=== PATIENT | female | born 1950 | race Caucasian/White ===

== ENCOUNTER 2024-12-11 15:08 | Emergency (ER) | payer MEDICARE, BC, SELFPAY ==
[2024-12-11 15:08] VITALS: BMI 25.6
--- NOTE | 2024-12-11 15:26 | EDNOTE_ITS ---
ED Extremity Problem RME/HPI General Chief complaint: Hand/Wrist Problems Stated complaint: INJURY TO LEFT HAND WITH SAW TODAY Time Seen by Provider: 12/11/24 15:14 Arrival date/time: 12/11/24 15:08 RME / HPI RME / HPI Narrative: This section includes all my notes and documentations, including HPI, PE, and ED course.? Jones Meza MD HPI: 74 year old female with history of hypertension presents to the ED for injury to her left hand and left foot after sawing accident that occurred ~ 30 minutes prior to arrival. States she was using an electric saw when she lost control and struck her left hand. Says the saw fell to the floor and struck her left heel. Reports pain to the lacerations from the saw and the left thumb feeling numb. No other injuries or complaints reported. ROS: All negative except as documented in HPI. Physical Exam: General:? Alert and oriented.?? Eyes:? Conjunctivae and lids clear.?? ENT:? No nasal congestion.?? Neck:? Supple.?? Lungs:? No respiratory distress.?? Skin:? Warm and dry.?? Neuro:? Alert and oriented X 3.?? Left Hand: Left thumb tenderness with multiple lacerations. Left Foot: Equivocal tenderness with multiple lacerations. I reviewed all diagnostic test results. My interpretation of the foot x-ray is no acute findings. My interpretation of the hand x-ray is acute comminuted fracture of the distal phalanx thumb proximally. At this point, diagnoses include?left thumb fracture with lacerations and left foot lacerations. Laceration repair procedure note: Each wound (left hand and left foot) was prepped and draped in normal sterile fashion. Local anesthesia achieved with 1% lidocaine. Profuse irrigation performed under the sink with soap and water and with normal saline. Wound of the left hand repaired with 6 simple sutures using 4-0 nylon. Wound of the left foot repaired with 5 simple sutures using 4-0 nylon. Good approximation and hemostasis achieved. Tdap given. Topical ABX and dressings applied. Patient tolerated well with no complications. Other treatment here included left thumb splint?IV fluid and ibuprofen and Unasyn and two Tylenol #3. Significant improvement noted. Provided good wound care instructions and recommended more outpatient care. Based on my best medical judgment, made decision no further evaluation or treatment indicated at this time.? Patient understands and agrees to the discharge instructions customized and printed, see below. Discharge instructions from Dr. Meza:? -- Your left hand laceration was repaired with 6 stitches. -- Your left foot laceration was repaired with 5 stitches. -- Keep the current dressings intact for 24 hours. -- After 24 hours, change the dressing once daily. -- First remove the dressings gently.? If they do not come off easily, run water through them until they come off easily. -- Then gently wash with soap and water. -- After completely drying, apply antibiotic ointment and new dressing. -- Elevate above the hand above the heart level today and tomorrow as much as possible.? Placing the hand on the head is a good method. Elevate the foot above the waist level today and tomorrow as much as possible. -- For your left thumb fracture, wear the splint until cleared by a doctor taking care of you. Tylenol with codeine for severe pain. -- Augmentin to help prevent severe infection. -- See your doctor or return here in 7 days for suture removal.? Total of 11 stitches. -- See a private doctor on 12/14/2024 for recheck and further care, including to make sure there is no serious infection brewing. Ask for help until you are completely better. Including referral to see specialists if needed. -- Seek immediate medical care with fever, spreading redness from a wound, intolerable pain, if he can't move your fingers or toes, your fingers or toes become cold and blue, or with any concerns. Jones Meza MD Related Data Previous Rx's ?Medication ?Instructions ?Recorded acetaminophen 300 mg-codeine 30 mg 2 tab PO TID PRN pain #20 tabs 12/11/24 tablet amoxicillin 875 mg-potassium 1 tab PO BID #5 tabs 12/11/24 clavulanate 125 mg tablet Allergies Allergy/AdvReac Type Severity Reaction Status Date / Time Sulfa (Sulfonamide Allergy Severe Hives Verified 12/11/24 15:10 Antibiotics) Review of Systems Review of Systems Systems Reviewed: All systems reviewed, normal except as documented Past Medical History Past Medical History NEUROLOGIC: Negative Neurological Disorders CARDIAC: Positive Hypertension RESPIRATORY: Negative Respiratory Disorders GASTROINTESTINAL: Negative Gastrointestinal Disorders GENITOURINARY: Negative Genitourinary Disorders MUSCULOSKELETAL: Negative Musculoskeletal Disorders ENT: Negative History of ENT Problems ENDOCRINE: Negative Endocrine Disorders Social History SMOKING STATUS: Never smoker ED Exam Narrative Physical exam: As noted in HPI Course Quality Measures none Orders Category Date Time Status Saline [Insert IV] NOW Care 12/11/24 16:35 Completed Splint / Immobilizer STAT Care 12/11/24 17:44 Completed Wound Care [Wound Care] NOW Care 12/11/24 16:35 Completed XR foot comp LT min 3V Stat Exams 12/11/24 15:40 Completed XR hand LT 2V Stat Exams 12/11/24 15:40 Completed ACETAMINOPHEN w/COD 300-30 [Tylenol w/Cod #3] Med 12/11/24 15:41 Discontinued 2 tab PO X1 ONE Amoxicillin/Pot Clav 875 [Augmentin 875] Med 12/11/24 15:40 Discontinued 1 tab PO X1 ONE Ampicillin/Sulbac Inj [Unasyn Inj] 1.5 gm Med 12/11/24 17:24 Discontinued Sodium Chloride 0.9% (P) [Ns 0.9% (P)] 50 ml IV X1 Ampicillin/Sulbac Inj [Unasyn Inj] 3 gm Med 12/11/24 16:33 Discontinued Sodium Chloride 0.9% (P) [Ns 0.9% (P)] 50 ml IV X1 Bacitracin Oint pkt Med 12/11/24 16:34 Discontinued 1 gm TOP X1 ONE Ibuprofen Tab [Motrin Tab] Med 12/11/24 15:41 Discontinued 400 mg PO X1 ONE Lidocaine 1% 20 ml [Xylocaine 1% 20 ML] Med 12/11/24 16:34 Discontinued 20 ml INFL X1 ONE Lidocaine 1% 20 ml [Xylocaine 1% 20 ML] Med 12/11/24 16:35 Discontinued 20 ml INFL X1 ONE Mupirocin Oint [Bactroban Oint] Med 12/11/24 17:51 Discontinued 2 gm TOP X1 ONE Sodium Chloride 0.9% 1000 ml [Ns] 1,000 ml Med 12/11/24 16:35 Discontinued IV 999 mls/hr Tet,Diphth,Pertuss(Acell)-Tdap [Boostrix Vacc] Med 12/11/24 15:40 Discontinued 0.5 ml IMI .ONCE ONE Vital Signs Vital signs: Vital Signs Temperature 98.2 F 12/11/24 15:40 Pulse Rate 103 H 12/11/24 15:40 Respiratory Rate 20 12/11/24 15:40 Blood Pressure 165/78 H 12/11/24 15:40 Pulse Oximetry (%) 95 12/11/24 15:40 Oxygen Delivery Method Room Air 12/11/24 15:40 Pulse ox is 95% on room air which is adequate. Extremity Problem MDM Narrative MDM Narrative:: Gayathri Casillas am scribing for and in the presence of Dr. Meza. Patient data External records reviewed:: [facility] previous records (Per EMR review, patient has no previous visits for review ) Clinical information provided by:: patient Social determinants that could affect healthcare access:: none Patient has the following chronic illnesses:: Hypertension How is presenting disease/condition affected by chronic disease/condition?: uneffected by Evaluation data The following diagnostics were reviewed and interpreted by me:: radiology exam(s) Lab and/or radiology exams considered but not ordered:: None Interpretation Summary: Left hand lacerations with left thumb fracture and left foot lacerations. Medications / Prescriptions Medications or Prescriptions considered but not ordered:: None Medication administrations:: Medication Administration History Discontinued Medications Acetaminophen/Codeine Phosphate (Acetaminophen W/Cod 300-30 Tablet) 2 tab PO X1 ONE Stop: 12/11/24 15:42 Last Admin: 12/11/24 16:18 Dose: 2 tab Documented By: JOSÉ MIGUEL Amoxicillin/Clavulanate Potassium (Amoxicillin/Pot Clav 875 Tablet) 1 tab PO X1 ONE Stop: 12/11/24 15:41 Last Admin: 12/11/24 16:14 Dose: 1 tab Documented By: JOSÉ MIGUEL Bacitracin (Bacitracin Oint 1 Gm Packet) 1 gm TOP X1 ONE Stop: 12/11/24 16:35 Last Admin: 12/11/24 17:51 Dose: 1 gm Documented By: ADELSO Comments: UNABLE TO SCAN Diphtheria/Tetanus/Acell Pertussis (Diphth,Pertuss(Acell),Tet Vac 0.5 Ml Vial) 0.5 ml IMi .ONCE ONE Stop: 12/11/24 15:41 Last Admin: 12/11/24 16:17 Dose: 0.5 ml Documented By: JOSÉ MIGUEL Ampicillin Sodium/Sulbactam (Sodium 3 gm/ Sodium Chloride) 50 mls @ 100 mls/hr IV X1 ONE Stop: 12/11/24 16:34 Last Admin: 12/11/24 17:24 Dose: Not Given Documented By: ADELSO Non-Admin Reason: Discontinued Sodium Chloride (Ns) 1,000 mls @ 999 mls/hr IV .Q1H1M ONE Stop: 12/11/24 17:35 Last Admin: 12/11/24 17:28 Dose: 999 mls/hr Documented By: ADELSO Ampicillin Sodium/Sulbactam (Sodium 1.5 gm/ Sodium Chloride) 50 mls @ 100 mls/hr IV X1 ONE Stop: 12/11/24 17:25 Last Infusion: 12/11/24 18:30 Dose: Infused Documented By: Admin: 12/11/24 17:51 Dose: 100 mls/hr Documented By: ADELSO Ibuprofen (Ibuprofen Tab 400 Mg Tablet) 400 mg PO X1 ONE Stop: 12/11/24 15:42 Last Admin: 12/11/24 16:18 Dose: 400 mg Documented By: JOSÉ MIGUEL Lidocaine HCl (Lidocaine Hcl 1% 20 Ml Vial) 20 ml INFL X1 ONE Stop: 12/11/24 16:35 Last Admin: 12/11/24 17:26 Dose: 20 ml Documented By: ADELSO Comments: GIVEN TO DR. YADAV FOR ADMINISTRATION Lidocaine HCl (Lidocaine Hcl 1% 20 Ml Vial) 20 ml INFL X1 ONE Stop: 12/11/24 16:36 Last Admin: 12/11/24 17:27 Dose: 20 ml Documented By: ADELSO Comments: GIVEN TO DR. YADAV FOR ADMINISTRATION Mupirocin (Mupirocin Oint 2% 15 Gm Tube) 2 gm TOP X1 ONE Stop: 12/11/24 17:52 Last Admin: 12/11/24 18:16 Dose: 2 gm Documented By: ADELSO Patient given Tylenol with codeine, Tetanus, Unasyn, and Ibuprofen Consultations Consultation(s) initiated? (list below): No Diagnosis Extremity Problem Differential Diagnosis: other (Fracture, laceration, contusion, sprain, strain) Most likely diagnosis given after review of the tests above:: Left hand lacerations with thumb fracture and left foot lacerations Admission Indicated Admission indicated?: not indicated Explain why admission is indicated or not indicated:: Admission criteria not met Admission Request Was there a request for admission?: No Disposition Plan Disposition Plan: Discharge Discharge Attestation Discharge Attestation: The patient and all family members were given an opportunity to ask questions and understood the discharge instructions. Discharge instructions specifically effects, indications for sooner follow up or return to the emergency department, and the expected course of current diagnosis. Patient condition: Stable Discharge Plan Plan Patient Disposition: HOME (Self Care) Prescriptions/Referrals Prescriptions/Med Rec: New acetaminophen-codeine 300-30 mg tablet 2 tab PO TID MDD 6 PRN (Reason: pain) Qty: 20 0RF amoxicillin-pot clavulanate 875-125 mg tablet 1 tab PO BID Qty: 5 0RF Problem List Clinical Impression: Hand fracture, left, Laceration of left hand, Laceration of left foot Patient/Caregiver Discharge Instructions Discharge Activity: activity as tolerated Education Materials: ED Laceration: All Closures, ED Fracture, Thumb Additional Instructions: Discharge instructions from Dr. Meza:? -- Your left hand laceration was repaired with 6 stitches. -- Your left foot laceration was repaired with 5 stitches. -- Keep the current dressings intact for 24 hours. -- After 24 hours, change the dressing once daily. -- First remove the dressings gently.? If they do not come off easily, run water through them until they come off easily. -- Then gently wash with soap and water. -- After completely drying, apply antibiotic ointment and new dressing. -- Elevate above the hand above the heart level today and tomorrow as much as possible.? Placing the hand on the head is a good method. Elevate the foot above the waist level today and tomorrow as much as possible. -- For your left thumb fracture, wear the splint until cleared by a doctor taking care of you. Tylenol with codeine for severe pain. -- Augmentin to help prevent severe infection. -- See your doctor or return here in 7 days for suture removal.? Total of 11 stitches. -- See a private doctor on 12/14/2024 for recheck and further care, including to make sure there is no serious infection brewing. Ask for help until you are completely better. Including referral to see specialists if needed. -- Seek immediate medical care with fever, spreading redness from a wound, intolerable pain, if he can't move your fingers or toes, your fingers or toes become cold and blue, or with any concerns. Print Language: Congolese Stand Alone Forms: [employer] Award Info., Patient Portal Info Letter
[2024-12-11 15:40] VITALS: BP 165/78; PULSE 103; RESP 20; TEMP 36.8; O2SAT 95
--- NOTE | 2024-12-11 15:40 | XR_ITS ---
Examination: Left hand 2 views Technique one AP lateral left hand 2 views Exam date and time: December 11, 2024 1624 hours INDICATIONS: Injury to the hand today, hand pain. FINDINGS: Acute comminuted fracture involving the proximal aspect distal phalanx first digit, mild offset at the fracture sites No dislocation Tiny opaque foreign bodies appear intact on this of the thumb Prominent osteopenia IMPRESSION: Acute comminuted fractures distal phalanx thumb
--- NOTE | 2024-12-11 15:40 | XR_ITS ---
Examination: Foot, left, 3 views Technique: AP, oblique, lateral views foot, 3 views Date and time of exam: December 11, 2024 1627 hours INDICATIONS: Laceration injury to the foot and ankle today, foot and ankle pain. FINDINGS: Moderate osteopenia No foot fracture or dislocation Suspicious for soft tissue defect posterior to the calcaneus with air densities in the soft tissue posterior to the distal tibia No opaque foreign bodies 3 mm opacity in the soft tissue posterior ankle suspicious for foreign body IMPRESSION:: No acute fracture Suspicious for 3 mm opaque foreign body in the soft tissue posterior ankle
[2024-12-11] MEDS: AMOXICILLIN/POT CLAV 875 TABLET 1 TAB PO (16:14)
[2024-12-11] MEDS: DIPHTH,PERTUSS(ACELL),TET VAC 0.5 ML VIAL IMi (16:17)
[2024-12-11] MEDS: IBUPROFEN TAB 400 MG TABLET PO (16:18)
[2024-12-11] MEDS: ACETAMINOPHEN w/COD 300-30 TABLET 2 TAB PO (16:18)
[2024-12-11] MEDS: LIDOCAINE HCL 1% 20 ML VIAL INFL ×2 (17:26→17:27)
[2024-12-11] MEDS: SODIUM CHLORIDE 0.9% 1000 ML 1,000 ML 999 ML IV (17:28)
[2024-12-11] MEDS: BACITRACIN OINT 1 GM PACKET TOP (17:51)
[2024-12-11] MEDS: AMPICILLIN/SULBAC INJ 1.5 GM in SODIUM CHLORIDE 0.9% (P) 50 ML IV (17:51)
[2024-12-11] MEDS: MUPIROCIN OINT 2% 15 GM TUBE 2 GM TOP (18:16)
--- NOTE | 2024-12-11 19:15 | PC.NURSE ---
informed Marcelino ANDREWS pt. heart rate 120, states ok to send home.
[2024-12-11 19:19] VITALS: BP 151/80; PULSE 120; RESP 17; TEMP 37.2; O2SAT 97
== END 2024-12-11 19:19 | disposition home or self-care (01) ==
PROVIDERS: Emergency Provider Emergency Medicine; PCP Internal Medicine
DX: S62.522A Displaced fracture of distal phalanx of left thumb, initial encounter for closed fracture (principal); S61.412A Laceration without foreign body of left hand, initial encounter; S91.312A Laceration without foreign body, left foot, initial encounter; W29.3XXA Contact with powered garden and outdoor hand tools and machinery, initial encounter; Z23 Encounter for immunization
CPT/HCPCS: 12001; 73120; 73630; 90471; 90715; 96365; 99284; J0295; J3490; J7030; J7050; A9270